=== PATIENT | male | born 1995 | race Caucasian/White ===

== ENCOUNTER 2020-03-16 11:02 | Emergency (ER) | payer OTHER ==
[2020-03-16] MEDS ORDERED: Lidocaine 1% 20 ML MDV ONE (11:34)
[2020-03-16] MEDS ORDERED: Triple Antibiotic Oint 1 GM Packet ONE (12:13)
== END 2020-03-16 12:22 | disposition home or self-care (01) ==
LOC: MADERS 11:02
DX: S61.012A Laceration without foreign body of left thumb without damage to nail, initial encounter (principal); H60.91 Unspecified otitis externa, right ear; W45.8XXA Other foreign body or object entering through skin, initial encounter
CPT/HCPCS: 12002

== ENCOUNTER 2021-01-21 04:49 | Emergency (ER) | payer SELFPAY | END 2021-01-21 05:20 | disposition home or self-care (01) | LOC: MADERS 04:49 | DX: R10.12 Left upper quadrant pain (principal) | CPT/HCPCS: 99283 ==

== ENCOUNTER 2022-01-14 11:45 | Emergency (ER) | payer OTHER, SELFPAY ==
[2022-01-14] MEDS ORDERED: Lidocaine 1% (PF) 30 ML VIAL ONE (13:06)
[2022-01-14] MEDS ORDERED: Bacitracin 1 PK ONE (13:06)
== END 2022-01-14 14:30 | disposition home or self-care (01) ==
LOC: MADERS 11:45
DX: S61.101A Unspecified open wound of right thumb with damage to nail, initial encounter (principal); W27.0XXA Contact with workbench tool, initial encounter; Y92.69 Other specified industrial and construction area as the place of occurrence of the external cause
CPT/HCPCS: 64450; J2001